=== PATIENT | female | born 1970 | race Caucasian/White ===

== ENCOUNTER 2020-11-20 06:48 | Inpatient (IN) ==
[2020-11-20] MEDS ORDERED: SODIUM CHLORIDE 0.9% 1000ML 1,000 ML IV STA (07:34)
[2020-11-20] MEDS ORDERED: ONDANSETRON INJ 2 MG/ML 2 ML VIAL IV STA (07:34)
[2020-11-20] MEDS ORDERED: MoRPHine SULFATE 4 MG/ML 1 ML CARP\\VIAL IV STA ×2 (07:34→08:57)
[2020-11-20 07:53] LABS: Hematocrit (blood only) 44.4 % (37-47); Hemoglobin 15.8 g/dL (12.0-16.0); Immature Granulocytes # (auto) 0.03 K/uL (0.00-0.02); Immature Granulocytes % (auto) 0.3 %; Lymphocytes # (auto) 0.91 K/uL (1.2-3.4); Mean Corpuscular Hgb Conc 35.6 g/dL (32-36); Mean Corpuscular Volume 87.2 fL (80-100); Mean Platelet Volume 11.5 fL (7.4-10.4); Monocytes # (auto) 0.27 K/uL (0.11-0.59); Neutrophils # (auto) 7.92 K/uL (1.4-6.5); Neutrophils % (auto) 86.7 %; Platelet Count 252 K/uL (130-400); RDW Coefficient of Variation 12.6 % (11.5-14.5); RDW Standard Deviation 40.4 fL (36.4-46.3); Red Blood Count 5.09 M/uL (4.2-5.4); White Blood Count 9.13 K/uL (4.8-10.8)
[2020-11-20] MEDS ORDERED: OPTIRAY 320 100ml IV ONE (07:57)
--- NOTE | 2020-11-20 08:02 | Emergency Department Note ---
Impression & Plan Small bowel obstruction ED Provider Note CHIEF COMPLAINT: Diffuse abdominal pain and nausea/vomiting HISTORY OF PRESENTING ILLNESS: This is a 50-year-old female who presents to the emergency department by private vehicle with complaint of abdominal pain that started yesterday afternoon. Patient had states she initially felt like she was really hungry and tried to eat something, but the pain kept getting worse and then she began to have nausea and dry heaves. She states she has not been able to keep anything down since yesterday. She has mostly been bringing up stomach acid and denies any persistent vomiting or bloody emesis. She notes the pain in her abdomen is diffuse, severe, nothing makes it better or worse, and she rates the pain as 8/10. She did not try any medications for the pain, stating she could not keep anything down. She notes a surgical history of a LAP-BAND pr ocedure in 2010 and has also had a partial hysterectomy (still has left ovary), and cholecystectomy. She believes she still has her appendix. She denies any history of bowel issues or bowel obstruction. She has not eaten or drank anything since yesterday afternoon. She did have several small bowel movements this morning, but denies diarrhea and notes that she has been passing gas. She denies any fevers or chills. She does not have an appetite. She has not had any chest pain, chest tightness, shortness of breath, cough or URI symptoms, dizziness or syncope, or urinary symptoms. 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 REVIEW OF SYSTEMS: A complete 10 point review of systems was reviewed with the patient with pertinent positives and negatives as per history of present illness. All else were negative. PAST MEDICAL HISTORY: Hypertension, thyroid cancer s/p thyroidectomy, hypothyroidism, cholecystectomy, partial hysterectomy, lap band surgery SOCIAL HISTORY: Lives at home with family, she denies tobacco use ALLERGIES: No known drug allergies PHYSICAL EXAM: CONSTITUTIONAL: Pleasant and cooperative. Nontoxic-appearing and in no acute distress, but appears significantly uncomfortable from pain. Moderately dehydrated. HEENT: Normocephalic, atraumatic. Pharynx normal. Dry mucous membranes. NECK: Supple, full active range of motion without discomfort. RESPIRATORY: Clear to auscultation bilaterally with no wheezing, crackles, rhonchi or stridor. Equal expansion bilaterally. CARDIOVASCULAR: Regular rate and rhythm with no murmurs, rubs or gallops. Normal peripheral perfusion. No edema. GASTROINTESTINAL: Abdomen is diffusely tender, most tender in the mid and right lower abdomen, positive guarding, but no rebound tenderness. Abdomen is distended but soft. No palpable masses or HSM. Bowel sounds slightly decreased b ut present in all quadrants. No CVA tenderness bilaterally. MUSCULOSKELETAL: Full range of motion of all joints without discomfort. INTEGUMENTARY: No rash or other significant dermatologic conditions noted. NEUROLOGIC: Alert and oriented X 4 with normal affect. Normal strength and sensation in all 4 extremities. Normal speech. Normal gait observed. ED COURSE AND MEDICAL DECISION MAKING: CC: Patient presenting with complaint of diffuse abdominal pain and nausea/vomiting DIFFERENTIAL DIAGNOSIS: Includes, but not limited to gastroenteritis, gastritis, peptic ulcer disease, GERD, small bowel obstruction, hernia, intra- abdominal infection, appendicitis, mesenteric adenitis, mesenteric ischemia, bowel perforation, cholelithiasis, pancreatitis, diverticulitis, infectious colitis, ovarian cyst, ovarian torsion, ectopic , UTI, aortic pathology, inflammatory bowel disease, renal colic, volvulus, constipation, as well as other pathologies. INTERPRETATION OF LABS: No leukocytosis, no anemia, normal platelets, mild hypokalemia, no other significant electrolyte abnormalities, mildly elevated BUN with a normal creatinine, normal liver enzymes and lipase. Elevated lactate. UA shows 3+ ketones and otherwise appears to be contaminated. EKG: Shows normal sinus rhythm with a rate of 84bpm, prolonged QT, no ST elevation or depression, no ectopy by my interpretation. No previous EKG available for comparison. MEDICATION RECONCILIATION: I attest that I have personally reviewed the patient's current medication list. INITIAL VITAL SIGNS REVIEW: I reviewed the patient's initial vital signs and interpret them as follows: T: Afebrile; BP: Hypertensive; HR: Within normal limits; RR: Within normal limits; Pulse Ox: Within normal limits on room air. MDM SUMMARY: Patient was evaluated at bedside, history and physical exam performed. Patient is alert and oriented, in no acute distress, but appears uncomfortable from pain. The patient is afebrile and nontoxic-appearing, but does appear to be moderately dehydrated clinically. The abdomen is diffusely tender and slightly distended but is soft, no acute abdomen. She complains of nausea but is not actively vomiting. Cardiac monitoring: An order was placed for continuous cardiac monitoring. The monitor shows a rate of 90 bpm with normal sinus rhythm. Orders were placed for labs including a lactic acid, UA, IV fluid bolus for hydration, IV Zofran for nausea, IV morphine for pain, EKG, acute abdominal x- ray, CT abdomen/pelvis with oral and IV contrast to evaluate for abdominal pain. Patient discussed with Dr. Panchal, who agrees with my assessment, plan, and disposition. Labs and imaging reviewed, no leukocytosis. Mild hypokalemia, which is being repleted IV. Labs were notable for elevated lactic acid, which I suspect may be due to dehydration and vomiting, repeat lactic acid pending. CT imaging shows a high-grade small bowel obstruction, without any evidence for perforation or free air. The patient and her were updated on all results and plan for admission, the patient was agreeable to this plan. I spoke with Dr. Fajardo, General Surgery, who evaluated the patient and felt the patient should be discussed with her established surgeon due to the history of the Lap Band. The patient follows with Dr. Bassett with Bariatric Surgery at [facility], I spoke on the phone with his colleague Dr. Olivier, who states that an NG tube placement is fine and there is no contraindication with the LAP-BAND. He also felt that the LAP-BAND was unlikely to contribute to her bowel obstruction. He did not feel the patient needed to be transferred to their facility. Dr. Fajardo was made aware and he was comfortable with this plan. [facility] the patient will be admitted under Dr. Lott. Patient reassessed multiple times throughout ED stay, she has remained hemodynamically stable and afebrile, though her pain has been difficult to control and she has received multiple doses of IV pain medication. An NG tube was successfully placed by nursing with large output of stomach contents and the patient reports improved discomfort after this. The patient was stable at time of admission. The chart was completed utilizing [employer] voice recognition software. Grammatical errors, random word insertions, pronoun errors, and incomplete sentences are an occasional consequence of this system due to software limitations, ambient noise, and hardware issues. Any formal questions or concerns about the content, text, or information contained within the body of this dictation should be directly addressed to the nurse practitioner for clarification. Past Med/Surg History Medical History (Updated 11/20/20 @ 13:50 by CALOS Ramírez) Hypertension Thyroid cancer s/p thyroidectomy Surgical History History of abdominoplasty History of cholecystectomy History of hysterectomy History of thyroidectomy LAP-BAND surgery status Family History Mother Hypertension Father Hypertension Melanoma Social History (Updated 11/20/20 @ 12:21 by Patricia Anderson PA-C) Smoking Status: Never smoker Hx Alcohol Use: No Hx Substance Use: No Feels Safe at Home: Yes Sunscreen Use: Yes Allergies Allergies Allergy/AdvReac Type Severity Reaction Status Date / Time No Known Allergies Allergy Verified 11/20/20 07:28 Home Meds Home Medications Medication Instructions Recorded Confirmed amlodipine 10 mg tablet 10 mg PO DAILY 05/27/19 11/20/20 biotin 1 mg capsule 1 mg PO DAILY 05/27/19 11/20/20 cholecalciferol (vitamin D3) 125 5,000 units PO DAILY 05/27/19 11/20/20 mcg (5,000 unit) capsule cyanocobalamin (vitamin B-12) 1,000 mcg PO DAILY 05/27/19 11/20/20 1,000 mcg capsule levothyroxine 150 mcg tablet 150 mcg PO DAILY 05/27/19 11/20/20 losartan 100 mg tablet 100 mg PO DAILY 05/27/19 11/20/20 hydrochlorothiazide 25 mg PO DAILY 11/20/20 11/20/20 Results & Data (ED) Vital Signs Vital Signs - 24 hr 11/20/20 06:51 11/20/20 09:08 11/20/20 11:02 Temperature 36.7 C Temperature Source Temporal Artery Scan Pulse Rate 93 H Pulse Rate [Apical] 69 88 Pulse Rhythm Regular Pulse Strength Normal Respiratory Rate 18 18 18 Respiratory Effort / Characteristics Non-Labored Spontaneous Respiratory Depth Normal Respiratory Pattern Regular Blood Pressure 149/91 H Blood Pressure [Left Arm] 151/92 H 181/94 H Blood Pressure Mean 110 Blood Pressure Mean [Left Arm] 111 123 Blood Pressure Position Sitting Pulse Oximetry 98 98 99 Oxygen Delivery Method Room Air Room Air Room Air Sepsis Recent Fever Within 48 Hours No Sepsis New/Unexplained Change in Mental Status N/A Sepsis Action Taken by Nursing No Action Required Laboratory Data Result diagrams: 11/20/20 07:43 11/20/20 07:43 Lab Results 11/20/20 11/20/20 11/20/20 Range/Units 07:43 07:43 07:43 WBC 9.13 (4.8-10.8) K/uL RBC 5.09 (4.2-5.4) M/uL Hgb 15.8 (12.0-16.0) g/dL Hct 44.4 (37-47) % MCV 87.2 (80-100) fL MCH 31.0 (25-34) pg MCHC 35.6 (32-36) g/dL RDW Std Deviation 40.4 (36.4-46.3) fL RDW Coeff of Jerson 12.6 (11.5-14.5) % Plt Count 252 (130-400) K/uL MPV 11.5 H (7.4-10.4) fL Immature Gran % (Auto) 0.3 % Neut % (Auto) 86.7 % Lymph % (Auto) 10.0 % [place] % (Auto) 3.0 % Eos % (Auto) 0.0 % Baso % (Auto) 0.0 % Neut # (Auto) 7.92 H (1.4-6.5) K/uL Lymph # (Auto) 0.91 L (1.2-3.4) K/uL [place] # (Auto) 0.27 (0.11-0.59) K/uL Eos # (Auto) 0.00 (0-0.5) K/uL Baso # (Auto) 0.00 (0-0.2) K/uL Immature Gran # (Auto) 0.03 H (0.00-0.02) K/uL Sodium 143 (136-145) mmol/L Potassium 3.0 L (3.5-5.1) mmol/L Chloride 108 H (98-107) mmol/L Carbon Dioxide 26 (21-32) mmol/L Anion Gap 9.0 (3-11) BUN 22 H (7-18) mg/dl Creatinine 0.89 (0.6-1.2) mg/dl Est Cr Clr Drug Dosing 78.0 ml/min Est GFR ( Amer) 86.4 ml/min Est GFR (Non-Af Amer) 74.5 ml/min BUN/Creatinine Ratio 25.1 H (10-20) Glucose 164 H (70-99) mg/dl Lactate (0.4-2.0) mmol/L Calcium 10.8 H (8.5-10.1) mg/dl Magnesium (1.8-2.4) mg/dl Total Bilirubin 0.6 (0.2-1) mg/dl AST 18 (15-37) U/L ALT 24 (12-78) U/L Alkaline Phosphatase 92 (45-117) U/L Total Protein 8.9 H (6.4-8.2) gm/dl Albumin 4.6 (3.4-5.0) gm/dl Globulin 4.3 H (2.5-4.0) gm/dl Albumin/Globulin Ratio 1.1 (0.9-2) Lipase 174 (73-393) U/L HCG, Qual Negative (Negative) Urine Color Urine Appearance (Clear) Urine pH (4.5-7.5) Ur Specific [place] (1.000-1.030) Urine Protein (Negative) Urine Glucose (UA) (Negative) Urine Ketones (Negative) Urine Blood (Negative) Urine Nitrite (Negative) Urine Bilirubin (Negative) Urine Urobilinogen (Negative) Ur Leukocyte Esterase (Negative) Urine WBC (Auto) (0-5) /hpf Urine RBC (Auto) (0-4) /hpf U Hyaline Cast (Auto) (0-5) /lpf U Epithel Cells (Auto) (0-5) /lpf Urine Bacteria (Auto) (Negative) Ur Renal Epithelial Cell Urine Mucus (None Prsent) COVID-19 Eval Order SARS-CoV-2 (PCR) (Negative) 11/20/20 11/20/20 11/20/20 Range/Units 07:43 07:59 08:50 WBC (4.8-10.8) K/uL RBC (4.2-5.4) M/uL Hgb (12.0-16.0) g/dL Hct (37-47) % MCV (80-100) fL MCH (25-34) pg MCHC (32-36) g/dL RDW Std Deviation (36.4-46.3) fL RDW Coeff of Jerson (11.5-14.5) % Plt Count (130-400) K/uL MPV (7.4-10.4) fL Immature Gran % (Auto) % Neut % (Auto) % Lymph % (Auto) % [place] % (Auto) % Eos % (Auto) % Baso % (Auto) % Neut # (Auto) (1.4-6.5) K/uL Lymph # (Auto) (1.2-3.4) K/uL [place] # (Auto) (0.11-0.59) K/uL Eos # (Auto) (0-0.5) K/uL Baso # (Auto) (0-0.2) K/uL Immature Gran # (Auto) (0.00-0.02) K/uL Sodium (136-145) mmol/L Potassium (3.5-5.1) mmol/L Chloride (98-107) mmol/L Carbon Dioxide (21-32) mmol/L Anion Gap (3-11) BUN (7-18) mg/dl Creatinine (0.6-1.2) mg/dl Est Cr Clr Drug Dosing ml/min Est GFR ( Amer) ml/min Est GFR (Non-Af Amer) ml/min BUN/Creatinine Ratio (10-20) Glucose (70-99) mg/dl Lactate 2.8 H* (0.4-2.0) mmol/L Calcium (8.5-10.1) mg/dl Magnesium 2.6 H (1.8-2.4) mg/dl Total Bilirubin (0.2-1) mg/dl AST (15-37) U/L ALT (12-78) U/L Alkaline Phosphatase (45-117) U/L Total Protein (6.4-8.2) gm/dl Albumin (3.4-5.0) gm/dl Globulin (2.5-4.0) gm/dl Albumin/Globulin Ratio (0.9-2) Lipase (73-393) U/L HCG, Qual (Negative) Urine Color Dark Yellow Urine Appearance Clear (Clear) Urine pH >= 9.0 H (4.5-7.5) Ur Specific [place] 1.024 (1.000-1.030) Urine Protein 2+ H (Negative) Urine Glucose (UA) Negative (Negative) Urine Ketones 3+ H (Negative) Urine Blood Negative (Negative) Urine Nitrite Negative (Negative) Urine Bilirubin Negative (Negative) Urine Urobilinogen Negative (Negative) Ur Leukocyte Esterase Trace H (Negative) Urine WBC (Auto) 5-10 H (0-5) /hpf Urine RBC (Auto) 5-10 H (0-4) /hpf U Hyaline Cast (Auto) 5-10 H (0-5) /lpf U Epithel Cells (Auto) >30 H (0-5) /lpf Urine Bacteria (Auto) 1+ H (Negative) Ur Renal Epithelial Cell Not Reportable Urine Mucus Present A (None Prsent) COVID-19 Eval Order SARS-CoV-2 (PCR) (Negative) 11/20/20 11/20/20 11/20/20 Range/Units 10:50 10:50 11:19 WBC (4.8-10.8) K/uL RBC (4.2-5.4) M/uL Hgb (12.0-16.0) g/dL Hct (37-47) % MCV (80-100) fL MCH (25-34) pg MCHC (32-36) g/dL RDW Std Deviation (36.4-46.3) fL RDW Coeff of Jerson (11.5-14.5) % Plt Count (130-400) K/uL MPV (7.4-10.4) fL Immature Gran % (Auto) % Neut % (Auto) % Lymph % (Auto) % [place] % (Auto) % Eos % (Auto) % Baso % (Auto) % Neut # (Auto) (1.4-6.5) K/uL Lymph # (Auto) (1.2-3.4) K/uL [place] # (Auto) (0.11-0.59) K/uL Eos # (Auto) (0-0.5) K/uL Baso # (Auto) (0-0.2) K/uL Immature Gran # (Auto) (0.00-0.02) K/uL Sodium (136-145) mmol/L Potassium (3.5-5.1) mmol/L Chloride (98-107) mmol/L Carbon Dioxide (21-32) mmol/L Anion Gap (3-11) BUN (7-18) mg/dl Creatinine (0.6-1.2) mg/dl Est Cr Clr Drug Dosing ml/min Est GFR ( Amer) ml/min Est GFR (Non-Af Amer) ml/min BUN/Creatinine Ratio (10-20) Glucose (70-99) mg/dl Lactate 3.1 H* (0.4-2.0) mmol/L Calcium (8.5-10.1) mg/dl Magnesium (1.8-2.4) mg/dl Total Bilirubin (0.2-1) mg/dl AST (15-37) U/L ALT (12-78) U/L Alkaline Phosphatase (45-117) U/L Total Protein (6.4-8.2) gm/dl Albumin (3.4-5.0) gm/dl Globulin (2.5-4.0) gm/dl Albumin/Globulin Ratio (0.9-2) Lipase (73-393) U/L HCG, Qual (Negative) Urine Color Urine Appearance (Clear) Urine pH (4.5-7.5) Ur Specific [place] (1.000-1.030) Urine Protein (Negative) Urine Glucose (UA) (Negative) Urine Ketones (Negative) Urine Blood (Negative) Urine Nitrite (Negative) Urine Bilirubin (Negative) Urine Urobilinogen (Negative) Ur Leukocyte Esterase (Negative) Urine WBC (Auto) (0-5) /hpf Urine RBC (Auto) (0-4) /hpf U Hyaline Cast (Auto) (0-5) /lpf U Epithel Cells (Auto) (0-5) /lpf Urine Bacteria (Auto) (Negative) Ur Renal Epithelial Cell Urine Mucus (None Prsent) COVID-19 Eval Order Covid19 at [facility] SARS-CoV-2 (PCR) NEGATIVE (Negative) Administered Medications Discontinued Medications Diphenhydramine HCl (Diphenhydramine 50 Mg/Ml Vial) 50 mg IV NOW STA Stop: 11/20/20 08:59 Last Admin: 11/20/20 09:08 Dose: 50 mg Documented by: [id number] Hydromorphone HCl (Hydromorphone Inj 0.5 Mg/0.5 Ml Syr) 0.5 mg IV NOW STA Stop: 11/20/20 10:57 Last Admin: 11/20/20 11:00 Dose: 0.5 mg Documented by: [id number] Sodium Chloride (Nss 1000ml) 1,000 mls @ 999 mls/hr IV .Q1H1M STA Stop: 11/20/20 08:34 Last Infusion: 11/20/20 10:11 Dose: 0 mls/hr Documented by: [id number] Admin: 11/20/20 07:51 Dose: 999 mls/hr Documented by: [id number] Potassium Chloride (K Ash / Wtr) 10 meq in 100 mls @ 100 mls/hr IV Q1H WHITLEY Stop: 11/20/20 12:59 Last Admin: 11/20/20 12:18 Dose: 100 mls/hr Documented by: [id number] Infusion: 11/20/20 12:09 Dose: 100 mls/hr Documented by: [id number] Admin: 11/20/20 11:09 Dose: 100 mls/hr Documented by: [id number] Ioversol (Optiray 320 100ml) 88 ml IV ONCE ONE Stop: 11/20/20 07:58 Last Admin: 11/20/20 07:57 Dose: 88 ml Documented by: [id number] Morphine Sulfate (Morphine Sulfate 4 Mg/Ml 1 Ml Carp\Vial) 4 mg IV NOW STA Stop: 11/20/20 07:35 Last Admin: 11/20/20 07:51 Dose: 4 mg Documented by: [id number] Morphine Sulfate (Morphine Sulfate 4 Mg/Ml 1 Ml Carp\Vial) 4 mg IV NOW STA Stop: 11/20/20 08:58 Last Admin: 11/20/20 09:08 Dose: 4 mg Documented by: [id number] Morphine Sulfate (Morphine Sulfate 2 Mg/Ml Carp) Confirm Administered Dose 2 mg .ROUTE .STK-MED ONE Stop: 11/20/20 13:22 Last Admin: 11/20/20 13:22 Dose: 2 mg Documented by: [id number] Ondansetron HCl (Ondansetron Inj 2 Mg/Ml 2 Ml Vial) 4 mg IV NOW STA Stop: 11/20/20 07:35 Last Admin: 11/20/20 07:51 Dose: 4 mg Documented by: [id number] Imaging Data Radiologist's Impression: Abdomen/Pelvis CT 11/20/20 07:34 CT SCAN OF THE ABDOMEN AND PELVIS WITH IV CONTRAST CLINICAL HISTORY: Generalized abdominal pain. Nausea. COMPARISON STUDY: Abdominal radiographs dated 11/20/2020. TECHNIQUE: Following the IV administration of 88 cc of Optiray 320, CT scan of the abdomen and pelvis is performed from the lung bases to the proximal femora. Images are reviewed in the axial, sagittal, and coronal planes. IV contrast was administered without complication. Oral contrast was utilized. A dose lowering technique was utilized adhering to the principles of ALARA. CT DOSE: 601.71 mGy.cm FINDINGS: Lung bases: The heart is normal in size and without pericardial effusion. The lung bases are clear noting bibasilar atelectasis. Liver: The contrast-enhanced liver is normal in size, contour, and attenuation. There is no intrahepatic biliary ductal dilatation. The hepatic veins and portal veins are patent. Gallbladder: Surgically absent noting clips in the gallbladder fossa. Spleen: Normal in size and attenuation. Pancreas: Unremarkable. Adrenal glands: Unremarkable. Kidneys: The contrast enhanced kidneys are normal in size and without hydronephrosis. The kidneys enhance symmetrically. An 11 mm cyst is seen in the right upper pole. Abdominal vasculature: The abdominal aorta is normal in course and caliber noting mild to moderate atherosclerotic calcification. Stomach and bowel: There is a small to moderate hiatal hernia. A gastric band is in place. The stomach and proximal small bowel loops are distended and fluid-fi lled. Small bowel loops measure up to 4.0 cm in diameter. There is trace interloop fluid. The distal small bowel and colon are decompressed, and the appearance is consistent with a high-grade bowel obstruction. A discrete transition point is not identified. This is likely located in the right lower quadrant. No focally thick walled bowel loops are identified. There is no pneumatosis intestinalis or portal venous gas. The appendix is well-visualized and normal. Peritoneum: There is no intraperitoneal free air. There is trace free fluid in the pelvis. Lymphadenopathy: None. Pelvic viscera: The bladder is normal as visualized. The uterus is surgically absent. No adnexal lesion is seen. Skeletal structures: There is mild lumbosacral spondylosis. No lytic or blastic lesions are seen. IMPRESSION: 1. Findings are consistent with a high-grade small bowel obstruction. A discrete transition point is not clearly identified. This is likely located in the right lower quadrant involving the ileum. 2. There is trace interloop fluid. No focally thick walled bowel loops are identified. There is no pneumatosis intestinalis, portal venous gas, or intraperitoneal free air. 3. A gastric band is in place. 4. Additional findings as above. ACT 112: Negative or not required by law. Electronically signed by: Reed Vásquez M.D. 11/20/2020 10:16 AM Chest/Abdomen X-ray 11/20/20 07:34 PA CHEST RADIOGRAPH AND UPRIGHT AND SUPINE AP RADIOGRAPHS OF THE ABDOMEN CLINICAL HISTORY: Abdominal pain. COMPARISON STUDY: No previous studies for comparison. FINDINGS: Lung volumes are mildly diminished. There is no pneumothorax or pleural effusion. Cardiac size is at the upper limits of normal. There is no evidence for pulmonary edema. No free air is present. There are cholecystectomy clips. Gastric lap band is in place. The stomach is distended. There is suspected oral contrast within the stomach. Multiple loops of moderately dilated small bowel measure up to 4.9 cm in caliber. Pelvic calcifications favor p hleboliths. IMPRESSION: 1. Multiple loops of moderately dilated small bowel suggestive of a small bowel obstruction. 2. No free air. 3. Distended stomach which likely contains oral contrast. Gastric lap band in place. ACT 112: Negative or not required by law. Electronically signed by: Fabiano Woo M.D. 11/20/2020 8:56 AM Discharge Plan Visit Data Chief Complaint: Abdominal Pain Stated Complaint: ABD PAIN ED Provider: Jeferson Panchal ED Midlevel Provider: Bette Aviles Discharge Problem: Small bowel obstruction Patient Disposition: Admitted As Inpatient Condition: Good Discharge Instructions Interventions: ED Discharge Assessment Last Done: 11/20/20 12:41
[2020-11-20 08:10] LABS: Albumin Level 4.6 gm/dl (3.4-5.0); BUN Creatinine Ratio 25.1 (10-20); Calcium 10.8 mg/dl (8.5-10.1); Est GFR (African American) 86.4 ml/min; Est GFR (Non-African American) 74.5 ml/min
[2020-11-20 08:13] LABS: Albumin Globulin Ratio 1.1 (0.9-2); Bilirubin,Total 0.6 mg/dl (0.2-1); Globulin 4.3 gm/dl (2.5-4.0); Total Protein 8.9 gm/dl (6.4-8.2)
[2020-11-20 08:20] LABS: Pregnancy Test, Serum Negative (Negative)
[2020-11-20 08:32] LABS: Appearance Urine Clear (Clear); Bilirubin Urine Negative (Negative); Blood Urine Negative (Negative); Color Urine Dark Yellow; Epithelial Cell Urine Auto >30 /lpf (0-5); Glucose Urine UA Negative (Negative); Ketones Urine 3+ (Negative); Leukocyte Esterase Urine Trace (Negative); Nitrite Urine Negative (Negative); Specific Gravity Urine 1.024 (1.000-1.030); Urobilinogen Urine Negative (Negative); pH Urine >= 9.0 (4.5-7.5)
[2020-11-20 08:46] LABS: Protein Urine 2+ (Negative)
[2020-11-20 08:53] LABS: Mucus Urine Present (None Prsent)
[2020-11-20 08:54] LABS: Bacteria Urine Automated 1+ (Negative)
[2020-11-20] MEDS ORDERED: diphenhydrAMINE 50 MG/ML VIAL IV STA (08:58)
--- NOTE | 2020-11-20 08:58 | XRay Report ---
PA CHEST RADIOGRAPH AND UPRIGHT AND SUPINE AP RADIOGRAPHS OF THE ABDOMEN CLINICAL HISTORY: Abdominal pain. COMPARISON STUDY: No previous studies for comparison. FINDINGS: Lung volumes are mildly diminished. There is no pneumothorax or pleural effusion. Cardiac size is at the upper limits of normal. There is no evidence for pulmonary edema. No free air is prese nt. There are cholecystectomy clips. Gastric lap band is in place. The stomach is distended. There is suspected oral contrast within the stomach. Multiple loops of moderately dilated small bowel measure up to 4.9 cm in caliber. Pelvic calcifications favor phleboliths. IMPRESSION: 1. Multiple loops of moderately dilated small bowel suggestive of a small bowel obstruction. 2. No free air. 3. Distended stomach which likely contains oral contrast. Gastric lap band in place. ACT 112: Negative or not required by law. Electronically signed by: Fabiano Woo M.D. 11/20/2020 8:56 AM
--- NOTE | 2020-11-20 10:17 | CT Scan Report ---
CT SCAN OF THE ABDOMEN AND PELVIS WITH IV CONTRAST CLINICAL HISTORY: Generalized abdominal pain. Nausea. COMPARISON STUDY: Abdominal radiographs dated 11/20/2020. TECHNIQUE: Following the IV administration of 88 cc of Optiray 320, CT scan of the abdomen and pelvi s is performed from the lung bases to the proximal femora. Images are reviewed in the axial, sagittal , and coronal planes. IV contrast was administered without complication. Oral contrast was utilized. A dose lowering technique was utilized adhering to the principles of ALARA. CT DOSE: 601.71 mGy.cm FINDINGS: Lung bases: The heart is normal in size and without pericardial effusion. The lung bases are clear no ting bibasilar atelectasis. Liver: The contrast-enhanced liver is normal in size, contour, and attenuation. There is no intrahepa tic biliary ductal dilatation. The hepatic veins and portal veins are patent. Gallbladder: Surgically absent noting clips in the gallbladder fossa. Spleen: Normal in size and attenuation. Pancreas: Unremarkable. Adrenal glands: Unremarkable. Kidneys: The contrast enhanced kidneys are normal in size and without hydronephrosis. The kidneys enh ance symmetrically. An 11 mm cyst is seen in the right upper pole. Abdominal vasculature: The abdominal aorta is normal in course and caliber noting mild to moderate at herosclerotic calcification. Stomach and bowel: There is a small to moderate hiatal hernia. A gastric band is in place. The stomac h and proximal small bowel loops are distended and fluid-filled. Small bowel loops measure up to 4.0 cm in diameter. There is trace interloop fluid. The distal small bowel and colon are decompressed, an d the appearance is consistent with a high-grade bowel obstruction. A discrete transition point is no t identified. This is likely located in the right lower quadrant. No focally thick walled bowel loops are identified. There is no pneumatosis intestinalis or portal venous gas. The appendix is well-vis ualized and normal. Peritoneum: There is no intraperitoneal free air. There is trace free fluid in the pelvis. Lymphadenopathy: None. Pelvic viscera: The bladder is normal as visualized. The uterus is surgically absent. No adnexal lesi on is seen. Skeletal structures: There is mild lumbosacral spondylosis. No lytic or blastic lesions are seen. IMPRESSION: 1. Findings are consistent with a high-grade small bowel obstruction. A discrete transition point is not clearly identified. This is likely located in the right lower quadrant involving the ileum. 2. There is trace interloop fluid. No focally thick walled bowel loops are identified. There is no pn eumatosis intestinalis, portal venous gas, or intraperitoneal free air. 3. A gastric band is in place. 4. Additional findings as above. ACT 112: Negative or not required by law. Electronically signed by: Reed Vásquez M.D. 11/20/2020 10:16 AM
--- NOTE | 2020-11-20 10:46 | Electrocardiogram Report ---
Test Reason : Blood Pressure : / mmHG Vent. Rate : 084 BPM Atrial Rate : 084 BPM P-R Int : 160 ms QRS Dur : 094 ms QT Int : 414 ms P-R-T Axes : 056 063 075 degrees QTc Int : 489 ms Normal sinus rhythm Nonspecific ST abnormality Prolonged QT Abnormal ECG No previous ECGs available Confirmed by Kevin An ([id number]) on 11/20/2020 10:45:59 AM Referred By: REFERRED SELF Confirmed By:Kevin An
[2020-11-20] MEDS ORDERED: HYDROmorphone INJ 0.5 MG/0.5 ML SYR IV STA (10:56)
[2020-11-20] MEDS: POTASSIUM CHLORIDE / WTR 10 MEQ/100 ML PLCT IV SCH ×2 (11:09→12:18)
--- NOTE | 2020-11-20 11:18 | Surgery Consultation ---
Date of Consultation November 20, 2020 Assessment & Plan (1) Small bowel obstruction: Normally we would attempt NG placement and decompression I am somewhat concerned because of her gastric band of placing an NG tube when I do not perform the band procedure We are going to check with surgeons in [place] who practice bariatric surgery It may be that she requires transfer with potential endoscopic placement of an NG tube if necessary History of Present Illness History of Present Illness 50-year-old female with recent history of abdominal pain nausea and vomiting Evaluation in the ER shows dilated distal small bowel consistent with small bowel obstruction-she does have a history of at least partial hysterectomy apparently she does have her single ovary she is also had a cholecystectomy Other history includes in 2010 she had a lap band placed which apparently recently had the fluid removed from it in April 2020-surgery was in [place] but the patient is followed in [place] Her CAT scan does show dilated distal small bowel and a severely dilated fluid- filled stomach Allergies Allergy/AdvReac Type Severity Reaction Status Date / Time No Known Allergies Allergy Verified 11/20/20 07:28 Home Medications Medication Instructions Recorded Confirmed Type amlodipine 10 mg tablet 10 mg PO DAILY 05/27/19 11/20/20 History biotin 1 mg capsule 1 mg PO DAILY 05/27/19 11/20/20 History cholecalciferol (vitamin D3) 125 5,000 units PO DAILY 05/27/19 11/20/20 History mcg (5,000 unit) capsule cyanocobalamin (vitamin B-12) 1,000 mcg PO DAILY 05/27/19 11/20/20 History 1,000 mcg capsule levothyroxine 150 mcg tablet 150 mcg PO DAILY 05/27/19 11/20/20 History losartan 100 mg tablet 100 mg PO DAILY 05/27/19 11/20/20 History hydrochlorothiazide 25 mg PO DAILY 11/20/20 11/20/20 History Patient History Medical History (Updated 11/20/20 @ 11:16 by Blue Fajardo MD, FACS) Thyroid cancer s/p thyroidectomy Surgical History History of abdominoplasty History of cholecystectomy History of thyroidectomy LAP-BAND surgery status Family History Mother Hypertension Father Hypertension Melanoma Social History Smoking Status: Never smoker Hx Alcohol Use: Yes Hx Substance Use: No Feels Safe at Home: Yes Sunscreen Use: Yes Review of Systems Review of Systems: All systems reviewed & are unremarkable except as noted in HPI & below Physical Exam Physical Exam: Patient is in her emergency room bed and she is uncomfortable most likely from gastric distention She has decreased bowel sounds, with moderate abdominal distention Constitutional: well developed Eyes: + anicteric sclerae Respiratory: normal respiratory effort; no respiratory distress Cardiovascular: Rate/Rhythm: regular rate Gastrointestinal (Abdomen): Inspection/Auscultation: + abdomen distended Musculoskeletal: Head/Neck/Chest: head atraumatic Skin: no rashes, warm and dry Neurologic: awake Psychiatric: Orientation: alert Results & Data ([facility]) Vital Signs (Past 12 Hours) Vital Signs Temp Pulse Pulse Resp BP BP Pulse Ox 11/20/20 11:02 88 18 181/94 H 99 11/20/20 09:08 69 18 151/92 H 98 11/20/20 06:51 36.7 C 93 H 18 149/91 H 98 I did review her CAT scan PG Care Time/CCT Total # of Minutes Spent Total Time Spent with Patient: Total time spent is greater than 50% in coordination of care (as documented) at patient's floor/unit and/or counseling patient: Coding Level of Care Code 98544 Inpt Consult Level 3 Diagnoses Small bowel obstruction K56.609
--- NOTE | 2020-11-20 12:18 | XRay Report ---
KUB CLINICAL HISTORY: Enteric tube placement. FINDINGS: An AP, portable, supine abdominal radiograph is correlated with abdominal CT performed the same day 11/20/2020. An enteric tube has been placed. The tip projects over the mid stomach. A gastric band is in place. Cholecystectomy clips are seen in the right upper quadrant. There is marked gaseou s distention of the stomach and small bowel loops consistent with small bowel obstruction. The lung b ases are clear noting basilar atelectasis. The bony structures are intact as visualized. Excreted IV contrast is seen within the renal collecting systems. IMPRESSION: 1. An enteric tube has been placed as above. 2. Persistent small bowel obstruction. Electronically signed by: Reed Vásquez M.D. 11/20/2020 12:17 PM
--- NOTE | 2020-11-20 12:33 | History & Physical Report ---
Date of Service November 20, 2020 Assessment & Plan (1) Small bowel obstruction: (2) Elevated lactic acid level: Pt is 50 y/o F with PMH thyroid CA, post surgical hypothyroidism, HTN, h/o lap band procedure in 2010, h/o cholecystectomy, hysterectomy presented to ER with c/o abdominal pain, nausea vomiting x 1 day. In ER patient afebrile, P: 93, BP 151/92, 98% on RA. WBC: 9, lipase: 174, liver functions: WNL, lactate: 2.8 CT abdomen pelvis: Findings are consistent with a high-grade small bowel obstruction. A discrete transition point is not clearly identified. This is likely located in the right lower quadrant involving the ileum. There is trace interloop fluid. No focally thick walled bowel loops are identified. There is no pneumatosis intestinalis, portal venous gas, or intraperitoneal free air. A gastric band is in place. -In ER given morphine total 8 mg IV, Zofran 4 mg IV, Benadryl 50 mg IV, NSS 1L -N.p.o. -IVF -NG tube placed in ER. KUB after placement shows enteric tube tip projects over the mid stomach -CBC, BMP in a.m. -KUB in a.m. -Trend lactic acid. May be elevated secondary to dehydration -General surgery consult -Dr. Fajardo. Had recommended speaking with bariatric surgery team in [place] secondary to patient's history of lap band procedure. ER provider spoke with the patient's surgery team at [place] who recommended NG tube and did not feel patient required transfer. Dr. Fajardo is aware of these recommendations and recommends admission here at [facility]. (3) Hypokalemia: K: 3.0. Magnesium: 2.6 -In ER given K riders x 2 -IVF + KCl -Monitor (4) Prolonged Q-T interval on ECG: QTc: 489 -Avoid QTC prolonging agents when possible (5) Hypertension: Hypertensive in ER. Probable secondary to pain and missed BP meds today -Hold oral meds at this time secondary to NG tube -Lopressor IV -Monitor BP (6) Thyroid cancer: S/p surgery. Postsurgical hypothyroidism Follows with endocrinology in [place] -Convert oral levothyroxine to IV while n.p.o. DVT Prophylaxis -SCDs Full Code Follows with Dr Stephanie Cortez for routine care Pt was seen and care coordinated with Dr Lott. See addendum History of Present Illness Chief Complaint: Abdominal pain Primary Care Provider: Stephanie Cortez DO Pt is 50 y/o F with PMH thyroid CA, post surgical hypothyroidism, HTN, h/o lap band procedure in 2010 presented to ER with c/o abdominal pain, nausea vomiting x 1 day. Patient reports sudden onset of pain yesterday with nausea, initially dry heaves and vomiting. Last ate yesterday afternoon. States had formed BM in the middle of the night. Abdominal pain progressed and patient came to ER. Patient does not feel like she has had flatus today. Patient states has hot flashes which she relates to menopause. Denies known fevers. Denies hematemesis, hematochezia, melena, diarrhea, GARCIA, dizziness, syncope, vision changes, neck pain, CP, SOB, orthopnea, palpitations, cough, sore throat, choking, otalgia, rhinorrhea, paresthesias, weakness, extremity weakness, extremity edema, rashes, urinary symptoms. Denies history SBO. History cholecystectomy, hysterectomy. In ER patient found to have SBO. General surgery aware and recommended speaking with bariatric surgery team in [place]. ER provider spoke with the patient's surgery team at [place] who recommended NG tube and did not feel patient required transfer. General surgery -Dr. Fajardo is aware of these recommendations and recommends admission here at [facility]. In ER NG tube was placed Allergies Allergy/AdvReac Type Severity Reaction Status Date / Time No Known Allergies Allergy Verified 11/20/20 07:28 Home Medications Medication Instructions Recorded Confirmed Type amlodipine 10 mg tablet 10 mg PO DAILY 05/27/19 11/20/20 History biotin 1 mg capsule 1 mg PO DAILY 05/27/19 11/20/20 History cholecalciferol (vitamin D3) 125 5,000 units PO DAILY 05/27/19 11/20/20 History mcg (5,000 unit) capsule cyanocobalamin (vitamin B-12) 1,000 mcg PO DAILY 05/27/19 11/20/20 History 1,000 mcg capsule levothyroxine 150 mcg tablet 150 mcg PO DAILY 05/27/19 11/20/20 History losartan 100 mg tablet 100 mg PO DAILY 05/27/19 11/20/20 History hydrochlorothiazide 25 mg PO DAILY 11/20/20 11/20/20 History Past Med/Surg History Medical History (Updated 11/20/20 @ 13:50 by CALOS Ramírez) Hypertension Thyroid cancer s/p thyroidectomy Surgical History History of abdominoplasty History of cholecystectomy History of hysterectomy History of thyroidectomy LAP-BAND surgery status Family History Mother Hypertension Father Hypertension Melanoma Social History (Updated 11/20/20 @ 12:21 by Patricia Anderson PA-C) Smoking Status: Never smoker Hx Alcohol Use: No Hx Substance Use: No Preferred Language: Macedonian Current Living Situation: Spouse and Family Current Living Situation Comment: and son Other Information That Helps Us Care for You: No Feels Safe at Home: Yes Sunscreen Use: Yes Assistive Devices: None Review of Systems Review of Systems: All systems reviewed & are unremarkable except as noted in HPI & below Physical Exam Physical Exam: General: mild distress secondary to NG tube, overweight Head: normocephalic, atraumatic Eyes: conjunctiva non-injected, anicteric ENT: normal inspection external ears, nose, mucous membranes dry Neck: supple, trachea midline Lungs: clear, no respiratory distress, no wheezing/rhonchi/rales CV: RRR, no murmur, no pretibial edema Abd: distended, hypoactive BS, soft, +diffuse tenderness to palpation Ext: no cyanosis, no calf tenderness Neuro: A&O x 3, no focal deficits noted, normal affect Skin: warm, dry Results & Data Results & Data ([facility]) Vital Signs (Past 12 Hours) Vital Signs Temp Pulse Pulse Resp BP BP Pulse Ox 11/20/20 11:02 88 18 181/94 H 99 11/20/20 09:08 69 18 151/92 H 98 11/20/20 06:51 36.7 C 93 H 18 149/91 H 98 Laboratory Results Short CBC 11/20/20 Range/Units 07:43 WBC 9.13 (4.8-10.8) K/uL Hgb 15.8 (12.0-16.0) g/dL Hct 44.4 (37-47) % Plt Count 252 (130-400) K/uL BMP 11/20/20 07:43 Sodium 143 Potassium 3.0 L Chloride 108 H Carbon Dioxide 26 BUN 22 H Creatinine 0.89 Glucose 164 H Calcium 10.8 H Liver Function 11/20/20 Range/Units 07:43 Total Bilirubin 0.6 (0.2-1) mg/dl AST 18 (15-37) U/L ALT 24 (12-78) U/L Alkaline Phosphatase 92 (45-117) U/L Albumin 4.6 (3.4-5.0) gm/dl Urine 11/20/20 Range/Units 07:59 Urine Color Dark Yellow Urine Appearance Clear (Clear) Urine pH >= 9.0 H (4.5-7.5) Ur Specific [place] 1.024 (1.000-1.030) Urine Protein 2+ H (Negative) Urine Glucose (UA) Negative (Negative) Diagnostic Findings Abdomen/Pelvis CT 11/20/20 07:34 CT SCAN OF THE ABDOMEN AND PELVIS WITH IV CONTRAST CLINICAL HISTORY: Generalized abdominal pain. Nausea. COMPARISON STUDY: Abdominal radiographs dated 11/20/2020. TECHNIQUE: Following the IV administration of 88 cc of Optiray 320, CT scan of the abdomen and pelvis is performed from the lung bases to the proximal femora. Images are reviewed in the axial, sagittal, and coronal planes. IV contrast was administered without complication. Oral contrast was utilized. A dose lowering technique was utilized adhering to the principles of ALARA. CT DOSE: 601.71 mGy.cm FINDINGS: Lung bases: The heart is normal in size and without pericardial effusion. The lung bases are clear noting bibasilar atelectasis. Liver: The contrast-enhanced liver is normal in size, contour, and attenuation. There is no intrahepatic biliary ductal dilatation. The hepatic veins and portal veins are patent. Gallbladder: Surgically absent noting clips in the gallbladder fossa. Spleen: Normal in size and attenuation. Pancreas: Unremarkable. Adrenal glands: Unremarkable. Kidneys: The contrast enhanced kidneys are normal in size and without hydronephrosis. The kidneys enhance symmetrically. An 11 mm cyst is seen in the right upper pole. Abdominal vasculature: The abdominal aorta is normal in course and caliber noting mild to moderate atherosclerotic calcification. Stomach and bowel: There is a small to moderate hiatal hernia. A gastric band is in place. The stomach and proximal small bowel loops are distended and fluid- filled. Small bowel loops measure up to 4.0 cm in diameter. There is trace interloop fluid. The distal small bowel and colon are decompressed, and the appearance is consistent with a high-grade bowel obstruction. A discrete transition point is not identified. This is likely located in the right lower quadrant. No focally thick walled bowel loops are identified. There is no pneumatosis intestinalis or portal venous gas. The appendix is well-visualized and normal. Peritoneum: There is no intraperitoneal free air. There is trace free fluid in the pelvis. Lymphadenopathy: None. Pelvic viscera: The bladder is normal as visualized. The uterus is surgically absent. No adnexal lesion is seen. Skeletal structures: There is mild lumbosacral spondylosis. No lytic or blastic lesions are seen. IMPRESSION: 1. Findings are consistent with a high-grade small bowel obstruction. A discrete transition point is not clearly identified. This is likely located in the right lower quadrant involving the ileum. 2. There is trace interloop fluid. No focally thick walled bowel loops are identified. There is no pneumatosis intestinalis, portal venous gas, or intraperitoneal free air. 3. A gastric band is in place. 4. Additional findings as above. ACT 112: Negative or not required by law. Electronically signed by: Reed Vásquez M.D. 11/20/2020 10:16 AM Chest/Abdomen X-ray 11/20/20 07:34 PA CHEST RADIOGRAPH AND UPRIGHT AND SUPINE AP RADIOGRAPHS OF THE ABDOMEN CLINICAL HISTORY: Abdominal pain. COMPARISON STUDY: No previous studies for comparison. FINDINGS: Lung volumes are mildly diminished. There is no pneumothorax or pleural effusion. Cardiac size is at the upper limits of normal. There is no evidence for pulmonary edema. No free air is present. There are cholecystectomy clips. Gastric lap band is in place. The stomach is distended. There is suspected oral contrast within the stomach. Multiple loops of moderately dilated small bowel measure up to 4.9 cm in caliber. Pelvic calcifications favor phleboliths. IMPRESSION: 1. Multiple loops of moderately dilated small bowel suggestive of a small bowel obstruction. 2. No free air. 3. Distended stomach which likely contains oral contrast. Gastric lap band in place. ACT 112: Negative or not required by law. Electronically signed by: Fabiano Woo M.D. 11/20/2020 8:56 AM KUB X-Ray 11/20/20 11:47 KUB CLINICAL HISTORY: Enteric tube placement. FINDINGS: An AP, portable, supine abdominal radiograph is correlated with abdominal CT performed the same day 11/20/2020. An enteric tube has been placed. The tip projects over the mid stomach. A gastric band is in place. Cholecys tectomy clips are seen in the right upper quadrant. There is marked gaseous distention of the stomach and small bowel loops consistent with small bowel obstruction. The lung bases are clear noting basilar atelectasis. The bony structures are intact as visualized. Excreted IV contrast is seen within the renal collecting systems. IMPRESSION: 1. An enteric tube has been placed as above. 2. Persistent small bowel obstruction. Electronically signed by: Reed Vásquez M.D. 11/20/2020 12:17 PM Code Status & VTE Plan VTE Prophylaxis Plan VTE Prophylaxis will be ordered: Yes Supervising Physician Co-Signing Physician Notes Attending addendum: The patient was seen and examined in medical telemetry unit She is status post gastric band placement in 2010 and also history of cholecystectomy and hysterectomy was admitted with intestinal obstruction Still complains of abdominal pain without distention and nauseous No fever and/or chills On examination Lying in bed with acute distress due to abdominal discomfort and NG tube placeme nt Hemodynamically stable and is afebrile Chest-clear to auscultate bilaterally Heart-S1-S2 regular Abdomen-soft, tender all over, bowel sounds sluggish, multiple scars from prior surgeries Extremities-negative for any edema Admission labs, EKG and imaging studies reviewed Has SBO with transition point likely in right lower quadrant Likely secondary to adhesions history of multiple abdominal procedures in the past Appreciate surgery input and recommendation NG tube has been placed and she will be n.p.o. with intravenous fluid replacement Agree with assessment and plan as outlined above by AUSTYN Powell Dr
[2020-11-20] MEDS ORDERED: PROMETHAZINE HCL 12.5 MG in SODIUM CHLORIDE 0.9% 50 ML IV PRN (13:10)
[2020-11-20] MEDS ORDERED: MoRPHine SULFATE 2 MG/ML CARP ONE (13:21)
--- NOTE | 2020-11-20 14:12 | XRay Report ---
KUB CLINICAL HISTORY: Enteric tube placement. FINDINGS: An AP, portable, supine abdominal radiograph is correlated with abdominal radiographs and C T performed the same day 11/20/2020. An enteric tube has been advanced. The tip projects over the dist al stomach. A gastric band is in place. Cholecystectomy clips are seen in the right upper quadrant. G astric distention has improved from previous. Distended small bowel loops persist. The lung bases are clear noting basilar atelectasis. The bony structures are intact as visualized. Excreted IV contrast is seen within the renal collecting systems. IMPRESSION: 1. An enteric tube has been advanced as above. 2. Persistent small bowel obstruction with decreased gaseous distention of the stomach is compared to previous. Electronically signed by: Reed Vásquez M.D. 11/20/2020 2:11 PM
[2020-11-20] MEDS: METOPROLOL TARTRATE 1 MG/ML VIAL IV SCH ×2 (14:26→18:01)
[2020-11-20] MEDS: NSS + 20MEQ KCL 20 MEQ/1,000 ML BAG IV SCH (14:34)
[2020-11-20] MEDS: ACETAMINOPHEN 1000 MG/100 ML IV IV PRN ×2 (14:38→19:31)
[2020-11-20] MEDS: MoRPHine SULFATE 2 MG/ML CARP IV PRN (17:18)
[2020-11-21] MEDS: METOPROLOL TARTRATE 1 MG/ML VIAL IV SCH ×4 (00:08→18:42)
[2020-11-21] MEDS: NSS + 20MEQ KCL 20 MEQ/1,000 ML BAG IV SCH (00:39)
[2020-11-21] MEDS: MoRPHine SULFATE 2 MG/ML CARP IV PRN ×3 (04:44→15:13)
--- NOTE | 2020-11-21 05:32 | Surgery Progress Note ---
Date of Service November 21, 2020 Assessment & Plan (1) Small bowel obstruction: Patient has been admitted on the hospitalist service. We will continue care as follows: Continue bowel rest with n.p.o. status Continue NG tube for decompression Continue hydration measures with IV fluids We will consider removing patient's NG tube and slowly advancing diet beginning with sips of clear liquids once there is further improvement of her bowel function Repeat KUB for this morning is ordered and is pending SCDs are in place for DVT prevention Admission and Anticipated Discharge Date Admission Date: November 20, 2020 Supervising Physician Co-Signing Physician Notes Dr. Fajardo-patient feeling somewhat better, sitting up in bed with NG tube in plac e Initially a significant amount of NG output now 175 cc last shift Continue with NG decompression and supportive care Check morning laboratories including Phos and mag Subjective Patient is currently resting in bed. She has had NG tube placed since admission for small bowel obstruction. She notes that since the NG tube is been placed she has noted symptomatic relief of her abdominal complaints specifically stating that she does not have any worsening abdominal pain and has not had any further nausea or vomiting. Currently denies any fevers, shakes, chills. He does note that since admission she is passing small amounts of flatus. She denies any bowel movement however since admission. Physical Exam Gastrointestinal (Abdomen): Abdomen is soft and nondistended. Bowel sounds are hypoactive. There is no rebound tenderness or guarding. Patient does have minor amount of pain with palpation but she does note that this is markedly improved since admission. Results & Data ([facility]) Vital Signs (Past 12 Hours) Vital Signs Temp Pulse Pulse Resp BP Pulse Ox 11/21/20 04:00 36.8 C 58 L 18 138/79 98 11/21/20 00:08 55 L 11/20/20 23:00 37.0 C 62 18 147/80 H 98 11/20/20 22:20 50 L 11/20/20 19:00 36.9 C 53 L 18 136/80 98 11/20/20 18:01 52 L PG Care Time/CCT Total # of Minutes Spent Total Time Spent with Patient: Total time spent is greater than 50% in coordination of care (as documented) at patient's floor/unit and/or counseling patient: Coding Level of Care Code 00254 Subseq Hosp Care Lvl 1 Diagnoses Small bowel obstruction K56.609
[2020-11-21 05:48] LABS: Hematocrit (blood only) 36.9 % (37-47); Hemoglobin 12.2 g/dL (12.0-16.0); Mean Corpuscular Hemoglobin 30.2 pg (25-34); Mean Corpuscular Hgb Conc 33.1 g/dL (32-36); Mean Corpuscular Volume 91.3 fL (80-100); Mean Platelet Volume 11.2 fL (7.4-10.4); Platelet Count 187 K/uL (130-400); RDW Coefficient of Variation 13.2 % (11.5-14.5); RDW Standard Deviation 44.2 fL (36.4-46.3); Red Blood Count 4.04 M/uL (4.2-5.4); White Blood Count 9.85 K/uL (4.8-10.8)
[2020-11-21 06:18] LABS: BUN Creatinine Ratio 26.7 (10-20); Calcium 8.2 mg/dl (8.5-10.1); Creatinine Clr Calc Pharmacy 123.8 ml/min; Est GFR (African American) 122.8 ml/min; Magnesium 2.4 mg/dl (1.8-2.4); Phosphorus 2.7 mg/dl (2.5-4.9); Potassium 3.6 mmol/L (3.5-5.1)
--- NOTE | 2020-11-21 08:07 | XRay Report ---
XR abdomen min 2V CLINICAL HISTORY: History of small bowel obstruction COMPARISON STUDY: 11/20/2020 FINDINGS: An enteric tube is visualized with its tip at the level the gastric antrum. There is a jere elian lap band in place. There are surgical clips within the right upper quadrant consistent with a radha or cholecystectomy. There is contrast within nondilated colon. There are mildly dilated small bowel l oops. IMPRESSION: Decreased small bowel distention. Gas present within nondilated colon. ACT 112: Negative or not required by law. Electronically signed by: Garrett Johnson M.D. 11/21/2020 8:06 AM
[2020-11-21] MEDS ORDERED: LEVOTHYROXINE SODIUM 75 MCG in SYRINGE 0 ML IV SCH (09:00)
[2020-11-21] MEDS ORDERED: D5NSS + 20MEQ KCL 20 MEQ/1,000 ML BAG IV SCH (09:15)
[2020-11-21] MEDS: ACETAMINOPHEN 1000 MG/100 ML IV IV PRN ×2 (09:59→18:43)
[2020-11-21] MEDS: D5W AND 1/2NSS + 20MEQ KCL 20 MEQ/1,000 ML BAG IV SCH ×2 (10:21→21:35)
--- NOTE | 2020-11-21 11:59 | Hospitalist Progress Note ---
Date of Service November 21, 2020 Assessment & Plan (1) Small bowel obstruction: Pt is 50 y/o F with PMH thyroid CA, post surgical hypothyroidism, HTN, h/o lap band procedure in 2010, h/o cholecystectomy, hysterectomy presented to ER with c/o abdominal pain, nausea vomiting x [address] abdomen pelvis: Findings are consistent with a high-grade small bowel obstruction. A discrete transition point is not clearly identified. This is likely located in the right lower quadrant involving the ileum. There is trace interloop fluid. No focally thick walled bowel loops are identified. There is no pneumatosis intestinalis, portal venous gas, or intraperitoneal free air. A gastric band is in place. General surgery consult -Dr. Fajardo. Had recommended speaking with bariatric surgery team in [place] secondary to patient's history of lap band procedure. ER provider spoke with the patient's surgery team at [place] who recommended NG tube and did not feel patient required transfer. Dr. Fajardo is aware of these recommendations and recommends admission here at [facility]. Has been put on NG tube with constant low suction drains N.p.o. since admission, IV pain medications and IV fluid Appreciate surgery input and recommendation Clinically much better today and will avoid using too much of narcotics X-ray of the abdomen did show improvement of SBO Hyponatremia Sodium went up to 150 Also noted to have hypoglycemia We will change intravenous fluid to D5 half NS Monitor PRP Left lower neck pain Exam at the local area did not show any abnormalities Reassured (2) Elevated lactic acid level: Pt is 50 y/o F with PMH thyroid CA, post surgical hypothyroidism, HTN, h/o lap band procedure in 2010, h/o cholecystectomy, hysterectomy presented to ER with c/o abdominal pain, nausea vomiting x 1 day. In ER patient afebrile, P: 93, BP 151/92, 98% on RA. WBC: 9, lipase: 174, liver functions: WNL, lactate: 2.8 IVF Trend lactic acid. May be elevated secondary to dehydration Lactic acid improved to 2.5 and on trending downwards Do not believe that she has any sepsis (3) Hypokalemia: K: 3.0. Magnesium: 2.6 -In ER given K riders x 2 -IVF + KCl -We will continue supplementing potassium in the IV fluid (4) Prolonged Q-T interval on ECG: QTc: 489 -Avoid QTC prolonging agents when possible (5) Hypertension: Hypertensive in ER. Probable secondary to pain and missed BP meds today -Hold oral meds at this time secondary to NG tube -Lopressor IV -Monitor BP (6) Thyroid cancer: S/p surgery. Postsurgical hypothyroidism Follows with endocrinology in [place] -Convert oral levothyroxine to IV while n.p.o. DVT Prophylaxis -SCDs Full Code Follows with Dr Stephanie Cortez for routine care Admission and Anticipated Discharge Date Admission Date: November 20, 2020 Subjective 11/21/20 The patient was seen and examined in medical telemetry unit She is status post gastric band placement in 2010 and also history of cholecystectomy and hysterectomy was admitted with intestinal obstruction She has less pain in the abdomen as of today but complains of some pain in the left lower neck No fever no chills and no nausea no vomiting Review of Systems Review of Systems: All systems reviewed and are unremarkable except as noted below Gastrointestinal: + abdominal pain (Much improved) and + nausea; no bloating and no vomiting Physical Exam Physical Exam: Lying in bed comfortably Constitutional: well developed, well nourished and + obese; not ill appearing Eyes: PERRL, conjunctivae normal, anicteric sclerae ENMT: external ear and nose normal, oropharynx normal Neck: Thyroid: + thyroid tender (Tenderness left lower neck without any obvious mass, redness or temperature) Respiratory: normal respiratory effort Auscultation: lungs clear to auscultation bilaterally Cardiovascular: Rate/Rhythm: regular rate and regular rhythm Heart Sounds: no murmur Extremities: no edema Gastrointestinal (Abdomen): Inspection/Auscultation: normal bowel sounds (Slightly decreased); abdomen not distended Percussion/Palpation: + abdomen tender (Mildly tender all over) and abdomen soft Musculoskeletal: No acute arthritis in any joint Neurologic: Alert, awake and oriented x3 Results & Data Results & Data ([facility]) Vital Signs (Past 12 Hours) Vital Signs Temp Pulse Pulse Resp BP Pulse Ox 11/21/20 11:21 37.0 C 52 L 16 131/74 97 11/21/20 07:17 36.5 C 58 L 16 124/80 95 11/21/20 07:00 70 11/21/20 06:01 58 L 11/21/20 04:00 36.8 C 58 L 18 138/79 98 11/21/20 00:08 55 L Laboratory Results Short CBC 11/21/20 Range/Units 05:27 WBC 9.85 (4.8-10.8) K/uL Hgb 12.2 D (12.0-16.0) g/dL Hct 36.9 L (37-47) % Plt Count 187 (130-400) K/uL BMP 11/21/20 05:27 Sodium 150 H Potassium 3.6 D Chloride 119 H Carbon Dioxide 27 BUN 15 Creatinine 0.58 L D Glucose 94 Calcium 8.2 L D Medications Administered Current Inpatient Medications Acetaminophen (Acetaminophen 1000 Mg/100 Ml Iv) 1,000 mg IV Q8H PRN PRN Reason: Pain or Fever Stop: 11/23/20 13:09 Last Admin: 11/21/20 09:59 Dose: 1,000 mg Documented by: Promethazine HCl 12.5 mg/ (Sodium Chloride) 50.5 mls @ 202 mls/hr IV Q6H PRN PRN Reason: Nausea And Vomiting Stop: 12/20/20 13:09 Levothyroxine Sodium 75 mcg/ (Syringe) 3.75 mls @ 2 mls/min IV Q72H [facility]; Protocol Stop: 12/21/20 08:59 Last Admin: 11/21/20 08:46 Dose: 2 mls/min Documented by: Potassium Chloride/Dextrose/Sod Cl (D5w And 1/2nss + 20meq Kcl) 20 meq in 1,000 mls @ 100 mls/hr IV .Q10H [facility] Stop: 12/21/20 09:29 Last Admin: 11/21/20 10:21 Dose: 100 mls/hr Documented by: Metoprolol Tartrate (Metoprolol Tartrate 1 Mg/Ml Vial) 5 mg IV Q6 [facility] Stop: 12/20/20 13:09 Last Admin: 11/21/20 06:01 Dose: Not Given Documented by: Morphine Sulfate (Morphine Sulfate 2 Mg/Ml Carp) 2 mg IV Q4H PRN PRN Reason: Severe Pain Stop: 12/04/20 13:09 Last Admin: 11/21/20 09:38 Dose: 2 mg Documented by:
[2020-11-22] MEDS: MoRPHine SULFATE 2 MG/ML CARP IV PRN (00:14)
[2020-11-22] MEDS: METOPROLOL TARTRATE 1 MG/ML VIAL IV SCH ×3 (00:14→11:51)
[2020-11-22] MEDS: ACETAMINOPHEN 1000 MG/100 ML IV IV PRN (05:50)
[2020-11-22 06:49] LABS: Basophils # (auto) 0.01 K/uL (0-0.2); Basophils % (auto) 0.1 %; Eosinophils # (auto) 0.27 K/uL (0-0.5); Eosinophils % (auto) 3.9 %; Hematocrit (blood only) 37.4 % (37-47); Hemoglobin 12.6 g/dL (12.0-16.0); Immature Granulocytes # (auto) 0.01 K/uL (0.00-0.02); Immature Granulocytes % (auto) 0.1 %; Lymphocytes # (auto) 1.92 K/uL (1.2-3.4); Lymphocytes % (auto) 27.9 %; Mean Corpuscular Hemoglobin 30.6 pg (25-34); Mean Corpuscular Hgb Conc 33.7 g/dL (32-36); Mean Corpuscular Volume 90.8 fL (80-100); Mean Platelet Volume 11.1 fL (7.4-10.4); Monocytes # (auto) 0.78 K/uL (0.11-0.59); Monocytes % (auto) 11.4 %; Neutrophils # (auto) 3.88 K/uL (1.4-6.5); Neutrophils % (auto) 56.6 %; Platelet Count 163 K/uL (130-400); RDW Coefficient of Variation 12.9 % (11.5-14.5); RDW Standard Deviation 42.8 fL (36.4-46.3); Red Blood Count 4.12 M/uL (4.2-5.4); White Blood Count 6.87 K/uL (4.8-10.8)
[2020-11-22 07:23] LABS: BUN Creatinine Ratio 20.9 (10-20); Calcium 8.9 mg/dl (8.5-10.1); Creatinine Clr Calc Pharmacy 152.3 ml/min; Est GFR (African American) 131.6 ml/min; Est GFR (Non-African American) 113.6 ml/min; Magnesium 2.3 mg/dl (1.8-2.4); Potassium 3.2 mmol/L (3.5-5.1)
--- NOTE | 2020-11-22 07:45 | Surgery Progress Note ---
Date of Service November 22, 2020 Assessment & Plan (1) Small bowel obstruction: She says she is passing flatus but no bowel movement Her bowel sounds are decreased She had 600 cc over the shift from her NG tube but is taking some ice I think we should perform CT with contrast via the NG tube Assess transit of the contrast over the next 24 hours Admission and Anticipated Discharge Date Admission Date: November 20, 2020 Subjective Patient feels better and has been passing flatus but no bowel movement She had 600 cc from her NG and is taking some ice Review of Systems Review of Systems: All systems reviewed & are unremarkable except as noted in HPI & below Physical Exam Physical Exam: Her abdomen is less distended she has decreased bowel sounds but does have some Constitutional: well developed; no acute distress Eyes: + anicteric sclerae Respiratory: normal respiratory effort; no respiratory distress Cardiovascular: Rate/Rhythm: regular rate Musculoskeletal: Head/Neck/Chest: head atraumatic Skin: no rashes, warm and dry Neurologic: awake Psychiatric: Orientation: alert Results & Data ([facility]) Vital Signs (Past 12 Hours) Vital Signs Temp Pulse Pulse Resp BP BP Pulse Ox 11/22/20 07:22 47 L 11/22/20 05:54 48 L 147/88 H 11/22/20 05:53 48 L 147/88 H 11/22/20 04:32 36.4 C L 61 18 148/86 H 95 11/22/20 00:54 48 L 11/22/20 00:14 63 148/86 H 11/21/20 23:20 37.0 C 63 18 148/86 H 96 PG Care Time/CCT Total # of Minutes Spent Total Time Spent with Patient: Total time spent is greater than 50% in coordination of care (as documented) at patient's floor/unit and/or counseling patient: Coding Level of Care Code 60506 Inpt Consult Level 3 Diagnoses Small bowel obstruction K56.609
[2020-11-22] MEDS: D5W AND 1/2NSS + 20MEQ KCL 20 MEQ/1,000 ML BAG IV SCH ×2 (08:12→21:36)
[2020-11-22] MEDS: POTASSIUM CHLORIDE / WTR 10 MEQ/100 ML PLCT IV SCH ×2 (09:37→10:53)
[2020-11-22] MEDS ORDERED: OPTIRAY 320 100ml IV ONE (09:57)
--- NOTE | 2020-11-22 10:38 | Electrocardiogram Report ---
Test Reason : Blood Pressure : / mmHG Vent. Rate : 048 BPM Atrial Rate : 048 BPM P-R Int : 162 ms QRS Dur : 096 ms QT Int : 480 ms P-R-T Axes : 029 045 046 degrees QTc Int : 428 ms Sinus bradycardia Otherwise normal ECG When compared with ECG of 20-NOV-2020 07:57, Vent. rate has decreased BY 36 BPM Nonspecific T wave abnormality no longer evident in Lateral leads QT has shortened Confirmed by Jayesh Jules ([id number]) on 11/22/2020 10:37:59 AM Referred By: REFERRED SELF Confirmed By:Jayesh Jules
--- NOTE | 2020-11-22 10:49 | CT Scan Report ---
CT OF THE ABDOMEN AND PELVIS WITH CONTRAST CLINICAL HISTORY: Wound drainage. COMPARISON STUDY: CT of the abdomen and pelvis November 20, 2020. Abdominal series November 21, 2030. TECHNIQUE: Following IV administration of 89 mL of Optiray, axial images of the abdomen and pelvis we re obtained from the lung bases to the proximal femurs. Images were reviewed in the axial, sagittal, and coronal planes. IV contrast was administered without complication. Automated exposure control wa s utilized for the study. A dose lowering technique was utilized adhering to the principles of ALARA . Oral contrast was administered. CT DOSE: 867.49 mGycm FINDINGS: Visualized portions of the lower chest demonstrate a small hiatal hernia with distal esopha geal wall thickening. This favors esophagitis. Tip of nasogastric tube is within the distal body of t he stomach. Gastric lap band is in place. There is no pneumatosis, free air or portal venous gas. A f ew left adrenal nodules are indeterminate but favor adenomas. The liver, spleen and pancreas are unre markable. A few right renal lesions favor cysts. There is no hydronephrosis. Oral contrast has reache d the colon and the rectum. Small bowel dilatation shown on CT of November 20, 2020 has resolved. There is mild wall thickening of several ileal loops. These loops are underdistended. No lymphadenopathy is p resent. Major vasculature is patent. No hydronephrosis. No acute fracture or suspicious lesion is mariia ntified within the visualized skeletal structures. The appendix is unremarkable. IMPRESSION: 1. Resolution of small bowel dilatation with oral contrast reaching the colon and rectum. The finding s represent a resolving small bowel obstruction. Mild wall thickening of several ileal loops. Trace i nterloop fluid, decreased since prior exam. 2. Gastric lap band in place. ACT 112: Negative or not required by law. Electronically signed by: Fabiano Woo M.D. 11/22/2020 10:47 AM
[2020-11-22] MEDS: SENNOSIDES 8.8 MG/5 ML UDC PO SCH ×2 (13:48→21:37)
--- NOTE | 2020-11-22 16:21 | Hospitalist Progress Note ---
Date of Service November 22, 2020 Assessment & Plan (1) Small bowel obstruction: Pt is 50 y/o F with PMH thyroid CA, post surgical hypothyroidism, HTN, h/o lap band procedure in 2010, h/o cholecystectomy, hysterectomy presented to ER with c/o abdominal pain, nausea vomiting x [address] abdomen pelvis: Findings are consistent with a high-grade small bowel obstruction. A discrete transition point is not clearly identified. This is likely located in the right lower quadrant involving the ileum. There is trace interloop fluid. No focally thick walled bowel loops are identified. There is no pneumatosis intestinalis, portal venous gas, or intraperitoneal free air. A gastric band is in place. General surgery consult -Dr. Fajardo. Had recommended speaking with bariatric surgery team in [place] secondary to patient's history of lap band procedure. ER provider spoke with the patient's surgery team at [place] who recommended NG tube and did not feel patient required transfer. Dr. Fajardo is aware of these recommendations and recommends admission here at [facility]. Has been put on NG tube with constant low suction drains N.p.o. since admission, IV pain medications and IV fluid Appreciate surgery input and recommendation Clinically much better today and will avoid using too much of narcotics X-ray of the abdomen did show improvement of SBO Symptomatically much better CT of the abdomen with follow-through did show passage of barium up to the rectum Likely discontinuation of the NG tube and start clears orally-this will depend on the surgeon Hypernatremia Sodium went up to 150 Hyponatremia secondary to volume contraction and may be complicated by use of normal saline Also noted to have hypoglycemia We will change intravenous fluid to D5 half NS Monitor PRP-sodium level has been EYES: Pupils round equal and react to light, extraocular movements full, no injection. Left lower neck pain Exam at the local area did not show any abnormalities Reassured (2) Elevated lactic acid level: Pt is 50 y/o F with PMH thyroid CA, post surgical hypothyroidism, HTN, h/o lap band procedure in 2010, h/o cholecystectomy, hysterectomy presented to ER with c/o abdominal pain, nausea vomiting x 1 day. In ER patient afebrile, P: 93, BP 151/92, 98% on RA. WBC: 9, lipase: 174, liver functions: WNL, lactate: 2.8 IVF Trend lactic acid. May be elevated secondary to dehydration Lactic acid improved to 2.5 and on trending downwards Do not believe that she has any sepsis (3) Hypokalemia: K: 3.0. Magnesium: 2.6 -In ER given K riders x 2 -IVF + KCl -We will continue supplementing potassium in the IV fluid -Electrolytes will be supplemented and monitored (4) Prolonged Q-T interval on ECG: QTc: 489 -Avoid QTC prolonging agents when possible (5) Hypertension: Hypertensive in ER. Probable secondary to pain and missed BP meds today -Hold oral meds at this time secondary to NG tube -Lopressor IV -Blood pressure remains on the higher side -We will restart oral medications (6) Thyroid cancer: S/p surgery. Postsurgical hypothyroidism Follows with endocrinology in [place] -Convert oral levothyroxine to IV while n.p.o. -We will restart oral thyroxine DVT Prophylaxis -SCDs Full Code Follows with Dr Stephanie Cortez for routine care Admission and Anticipated Discharge Date Admission Date: November 20, 2020 Subjective 11/21/20 The patient was seen and examined in medical telemetry unit She is status post gastric band placement in 2010 and also history of cholecystectomy and hysterectomy was admitted with intestinal obstruction She has less pain in the abdomen as of today but complains of some pain in the left lower neck No fever no chills and no nausea no vomiting 11/22/2020 The patient was seen and examined in medical telemetry unit She has been feeling a lot better and denies any abdominal pain, distention or nausea/vomiting CT scan of the abdomen with follow-through did show passes of barium up to the rectum Denies any other symptoms Review of Systems Review of Systems: All systems reviewed and are unremarkable except as noted below Gastrointestinal: no abdominal pain (Much improved), no bloating, no nausea and no vomiting Physical Exam Physical Exam: Lying in bed comfortably Constitutional: well developed, well nourished and + obese; not ill appearing Eyes: PERRL, conjunctivae normal, anicteric sclerae ENMT: external ear and nose normal, oropharynx normal Neck: Thyroid: + thyroid tender (Tenderness left lower neck without any obvious mass, redness or temperature) Respiratory: normal respiratory effort Auscultation: lungs clear to auscultation bilaterally Cardiovascular: Rate/Rhythm: regular rate and regular rhythm Heart Sounds: no murmur Extremities: no edema Gastrointestinal (Abdomen): Inspection/Auscultation: normal bowel sounds (Slightly decreased); abdomen not distended Percussion/Palpation: abdomen soft; abdomen nontender (Mildly tender all over) Musculoskeletal: No acute arthritis in any joint Neurologic: Alert, awake and oriented x3. No focal sensory and motor deficit appreciated Lymphatic: no cervical or axillary lymphadenopathy Results & Data Results & Data ([facility]) Vital Signs (Past 12 Hours) Vital Signs Temp Pulse Pulse Pulse Resp BP BP 11/22/20 15:43 36.7 C 58 L 18 172/96 H 11/22/20 15:10 58 L 11/22/20 11:54 36.3 C L 54 L 16 11/22/20 11:51 52 L 11/22/20 11:50 52 L 11/22/20 07:51 36.4 C L 59 L 18 11/22/20 07:22 47 L 11/22/20 05:54 48 L 147/88 H 11/22/20 05:53 48 L 147/88 H 11/22/20 04:32 36.4 C L 61 18 148/86 H BP Pulse Ox 11/22/20 15:43 97 11/22/20 15:10 11/22/20 11:54 146/90 H 97 11/22/20 11:51 11/22/20 11:50 11/22/20 07:51 146/78 H 95 11/22/20 07:22 11/22/20 05:54 11/22/20 05:53 11/22/20 04:32 95 Laboratory Results Short CBC 11/22/20 Range/Units 06:30 WBC 6.87 (4.8-10.8) K/uL Hgb 12.6 (12.0-16.0) g/dL Hct 37.4 (37-47) % Plt Count 163 (130-400) K/uL BMP 11/22/20 06:30 Sodium 144 Potassium 3.2 L Chloride 110 H Carbon Dioxide 31 BUN 10 D Creatinine 0.47 L Glucose 102 H Calcium 8.9 Medications Administered Current Inpatient Medications Acetaminophen (Acetaminophen 1000 Mg/100 Ml Iv) 1,000 mg IV Q8H PRN PRN Reason: Pain or Fever Stop: 11/23/20 13:09 Last Admin: 11/22/20 05:50 Dose: 1,000 mg Documented by: Promethazine HCl 12.5 mg/ (Sodium Chloride) 50.5 mls @ 202 mls/hr IV Q6H PRN PRN Reason: Nausea And Vomiting Stop: 12/20/20 13:09 Levothyroxine Sodium 75 mcg/ (Syringe) 3.75 mls @ 2 mls/min IV Q72H [facility]; Protocol Stop: 12/21/20 08:59 Last Admin: 11/21/20 08:46 Dose: 2 mls/min Documented by: Potassium Chloride/Dextrose/Sod Cl (D5w And 1/2nss + 20meq Kcl) 20 meq in 1,000 mls @ 100 mls/hr IV .Q10H [facility] Stop: 12/21/20 09:29 Last Infusion: 11/22/20 11:58 Dose: 100 mls/hr Documented by: Metoprolol Tartrate (Metoprolol Tartrate 1 Mg/Ml Vial) 5 mg IV Q6 [facility] Stop: 12/20/20 13:09 Last Admin: 11/22/20 11:51 Dose: Not Given Documented by: Morphine Sulfate (Morphine Sulfate 2 Mg/Ml Carp) 2 mg IV Q4H PRN PRN Reason: Severe Pain Stop: 12/04/20 13:09 Last Admin: 11/22/20 00:14 Dose: 2 mg Documented by: Sennosides (Sennosides 8.8 Mg/5 Ml Udc) 8.8 mg PO BID [facility] Stop: 12/22/20 12:59 Last Admin: 11/22/20 13:48 Dose: 8.8 mg Documented by:
[2020-11-22] MEDS: amLODIPine BESYLATE 5 MG TAB PO SCH (17:41)
[2020-11-22] MEDS: LOSARTAN POTASSIUM 50 MG TAB PO SCH (17:41)
--- NOTE | 2020-11-23 07:22 | Surgery Progress Note ---
Date of Service November 23, 2020 Assessment & Plan (1) Small bowel obstruction: Obstruction seems to have resolved Likely from adhesions and possibly some fibrous food she ate Doubt this was a enteritis Advance diet to low fiber Can be discharged home from a surgical standpoint, she does not need to follow- up with surgery Admission and Anticipated Discharge Date Admission Date: November 20, 2020 Subjective Tolerating clear liquids well and moving her bowels feels well and wants to go home Review of Systems Review of Systems: All systems reviewed & are unremarkable except as noted in HPI & below Physical Exam Constitutional: well developed; no acute distress Eyes: + anicteric sclerae Respiratory: normal respiratory effort; no respiratory distress Cardiovascular: Rate/Rhythm: regular rate Gastrointestinal (Abdomen): Inspection/Auscultation: abdomen not distended Musculoskeletal: Head/Neck/Chest: head atraumatic Skin: no rashes, warm and dry Neurologic: awake Psychiatric: Orientation: alert Results & Data ([facility]) Vital Signs (Past 12 Hours) Vital Signs Temp Pulse Resp BP BP Pulse Ox 11/23/20 04:06 36.7 C 64 18 136/76 97 11/22/20 22:51 36.6 C 66 18 158/82 H 96 11/22/20 19:25 37.3 C 60 18 159/98 H 96 PG Care Time/CCT Total # of Minutes Spent Total Time Spent with Patient: Total time spent is greater than 50% in coordination of care (as documented) at patient's floor/unit and/or counseling patient: Coding Level of Care Code 95850 Inpt Consult Level 3 Diagnoses Small bowel obstruction K56.609
[2020-11-23] MEDS: D5W AND 1/2NSS + 20MEQ KCL 20 MEQ/1,000 ML BAG IV SCH (07:29)
[2020-11-23] MEDS: SENNOSIDES 8.8 MG/5 ML UDC PO SCH (07:30)
[2020-11-23] MEDS: amLODIPine BESYLATE 5 MG TAB PO SCH (07:33)
[2020-11-23] MEDS: LOSARTAN POTASSIUM 50 MG TAB PO SCH (07:34)
[2020-11-23] MEDS ORDERED: CYANOCOBALAMIN 500 MCG TABLET (VITAMIN B-12) PO SCH (09:00)
[2020-11-23] MEDS ORDERED: NON-FORMULARY MEDICATION (Biotin 1 mg capsule) PO SCH (09:00)
[2020-11-23] MEDS ORDERED: LEVOTHYROXINE SODIUM 150 MCG TABLET PO SCH (09:00)
[2020-11-23] MEDS ORDERED: CHOLECALCIFEROL 1,000 UNITS 25 MCG TAB PO SCH (09:00)
[2020-11-23] MEDS ORDERED: POTASSIUM CHLORIDE PWD 20 MEQ PACK PO ONE (09:18)
--- NOTE | 2020-11-23 12:22 | Hospitalist Progress Note ---
Date of Service November 23, 2020 Assessment & Plan (1) Small bowel obstruction: Small bowel obstruction -CT ABD: Findings are consistent with a high-grade small bowel obstruction. A discrete transition point is not clearly identified. This is likely located in the right lower quadrant involving the ileum. There is trace interloop fluid. No focally thick walled bowel loops are identified. There is no pneumatosis intestinalis, portal venous gas, or intraperitoneal free air. A gastric band is in place. -NG discontinued -Received IV fluids -Appreciate surgery input -Tolerated regular diet Hypernatremia Sodium: 150>>144 Likely dehydration Received IV fluids Monitor (2) Elevated lactic acid level: Elevated likely due to dehydration Lactic acid levels improved (3) Hypokalemia: Hypokalemia Replaced electrolytes as needed Monitor (4) Prolonged Q-T interval on ECG: QTc: 489 Avoid QTC prolonging agents when possible (5) Hypertension: BP elevated Likely situational Continue home meds Advised to follow up with PCP (6) Thyroid cancer: S/p surgery Postsurgical hypothyroidism Follows with endocrinology in [place] Continue levothyroxine DVT Px SCDs Code Status Full Code Disposition Follows with Dr Stephanie Cortez for routine care Admission and Anticipated Discharge Date Admission Date: November 20, 2020 Subjective Patient is seen and examined at bedside States feeling well today Had bowel movement overnight and this morning Denies nausea, vomiting, abdominal pain Tolerating diet Offers no other complaints Review of Systems Review of Systems: All systems reviewed & are unremarkable except as noted in HPI & below Physical Exam Physical Exam: Physical Exam: Vitals signs as noted above General Appearance:Obese, no apparent distress Head: normocephalic, Atraumatic Eyes: normal inspection, EOMI Neck: supple, Trachea midline Respiratory/Chest: Normal breath sounds, CTA Cardiovascular: S1, S2, No murmur Abdomen/GI:Soft, Non tender, Bowel sounds present Extremities/Musculoskeletal:normal inspection, no edema Neurologic/Psych:AAOX3, grossly no focal neurological deficits Skin: normal color, warm Results & Data Results & Data ([facility]) Vital Signs (Past 12 Hours) Vital Signs Temp Pulse Pulse Resp BP BP Pulse Ox 11/23/20 11:13 36.8 C 67 17 160/91 H 96 11/23/20 07:53 36.7 C 63 20 165/100 H 144/101 H 97 11/23/20 07:24 55 L 11/23/20 04:06 36.7 C 64 18 136/76 97
--- NOTE | 2020-11-23 14:11 | Discharge Summary ---
Date of Service November 23, 2020 Admission HPI Per Admitting Provider Pt is 50 y/o F with PMH thyroid CA, post surgical hypothyroidism, HTN, h/o lap band procedure in 2010 presented to ER with c/o abdominal pain, nausea vomiting x 1 day. Patient reports sudden onset of pain yesterday with nausea, initially dry heaves and vomiting. Last ate yesterday afternoon. States had formed BM in the middle of the night. Abdominal pain progressed and patient came to ER. Patient does not feel like she has had flatus today. Patient states has hot flashes which she relates to menopause. Denies known fevers. Denies hematemesis, hematochezia, melena, diarrhea, GARCIA, dizziness, syncope, vision ch anges, neck pain, CP, SOB, orthopnea, palpitations, cough, sore throat, choking, otalgia, rhinorrhea, paresthesias, weakness, extremity weakness, extremity edema, rashes, urinary symptoms. Denies history SBO. History cholecystectomy, hysterectomy. In ER patient found to have SBO. General surgery aware and recommended speaking with bariatric surgery team in [place]. ER provider spoke with the patient's surgery team at [place] who recommended NG tube and did not feel patient required transfer. General surgery -Dr. Fajardo is aware of these recommendations and recommends admission here at [facility]. In ER NG tube was placed Principal Diagnosis Small bowel obstruction Hypernatremia Hypokalemia Discharge Data Allergies Allergy/AdvReac Type Severity Reaction Status Date / Time No Known Allergies Allergy Verified 11/20/20 07:28 Consultations 11/20/20 10:40 ED Decision to Admit Stat 11/20/20 13:10 Consult General Surgery Routine Procedures Performed CT ABD: 1. Findings are consistent with a high-grade small bowel obstruction. A discrete transition point is not clearly identified. This is likely located in the right lower quadrant involving the ileum. 2. There is trace interloop fluid. No focally thick walled bowel loops are identified. There is no pneumatosis intestinalis, portal venous gas, or intraperitoneal free air. 3. A gastric band is in place. Ordered Studies 11/20/20 07:34 CT abd pelvis oral and IV con Stat 11/22/20 07:37 CT abd pelvis oral and IV con Urgent Hospital Course (1) Small bowel obstruction: Small bowel obstruction -CT ABD: Findings are consistent with a high-grade small bowel obstruction. A discrete transition point is not clearly identified. This is likely located in the right lower quadrant involving the ileum. There is trace interloop fluid. No focally thick walled bowel loops are identified. There is no pneumatosis intestinalis, portal venous gas, or intraperitoneal free air. A gastric band is in place. -NG discontinued -Received IV fluids -Appreciate surgery input -Tolerated regular diet Hypernatremia Sodium: 150>>144 Likely dehydration Received IV fluids Monitor (2) Elevated lactic acid level: Elevated likely due to dehydration Lactic acid levels improved (3) Hypokalemia: Hypokalemia Replaced electrolytes as needed Monitor (4) Prolonged Q-T interval on ECG: QTc: 489 Avoid QTC prolonging agents when possible (5) Hypertension: BP elevated Likely situational Continue home meds Advised to follow up with PCP (6) Thyroid cancer: S/p surgery Postsurgical hypothyroidism Follows with endocrinology in [place] Continue levothyroxine DVT Px SCDs Code Status Full Code Disposition Follows with Dr Stephanie Cortez for routine care Total Time Total Time Spent Total Time Spent (In Minutes): 42 minutes Total Time Includes: Examination of the Patient, Discharge Planning, Medication Reconciliation, Communication With Other Providers and Other Discharge Plan Discharge Items Patient Disposition: Home - Self-Care Reason For Visit: SBO Discharge Diagnosis: Small bowel obstruction Hypernatremia Hypokalemia Condition on Discharge: Good Activity: Per Instructions section Exercise/Sports: Gradually increase as tolerated Non-emergency contact: Primary Care Provider Call non-emergency contact if: you have any medication questions, your symptoms worsen, your pain is not controlled, your pain is concerning for you and you have a fever Follow-up/Referrals: Stephanie Cortez DO [Primary Care Provider] - (Date & Time 11/29/2020 10:00 AM Provider Stephanie Cortez DO Department Family [facility] ) Diet: Heart Healthy and Low Fiber Addtl Attending Provider Instructions: Follow-up with your primary care physician on 11/29/2020 10:00 AM Seek immediate medical attention if your symptoms reoccur or worsen Please take all medications as instructed on discharge list below. Please call if you have any questions or problems. You can reach a [facility] hospitalist on duty at [facility] 24 hours a day by calling [phone] Pending Studies at Discharge: No Stand-Alone Forms: [facility], [facility] Cess[facility] Medications and DC Order Prescriptions: New potassium chloride 20 mEq tablet extended release 20 meq PO DAILY Qty: 7 RF: 0 Continued levothyroxine [Synthroid] 150 mcg tablet 150 mcg PO DAILY RF: 0 losartan 100 mg tablet 100 mg PO DAILY RF: 0 amlodipine 10 mg tablet 10 mg PO DAILY RF: 0 cholecalciferol (vitamin D3) 5,000 unit capsule 5,000 units PO DAILY RF: 0 biotin 1 mg capsule 1 mg PO DAILY RF: 0 cyanocobalamin (vitamin B-12) 1,000 mcg capsule 1,000 mcg PO DAILY RF: 0 hydrochlorothiazide 25 mg tablet 25 mg PO DAILY RF: 0 Discharge Orders: Discharge Order (Routine); Ordered 11/23/20 Ordered By: Anastacio Macario Admission Data Admit Date/Time: 11/20/20 11:45 Attending Provider: Anastacio Macario Admit Provider: Codie Lott Primary Care Provider: Stephanie Cortez Other Providers: Blue Fajardo ; Codie Lott Other Interventions: Discharge Summary Assessment (RN) Last Done: 11/23/20 12:48
== END 2020-11-23 13:02 | disposition home or self-care (01) | DRG 389 ==
LOC: ED 06:48 → SUATTDRO 11:45 → 2N 11:45